=== PATIENT | female | born 1980 | race Caucasian/White ===

== ENCOUNTER 2021-06-21 19:25 | Emergency (ER) | payer OTHER, SELFPAY ==
[2021-06-21 19:52] VITALS: BP 167/84; PULSE 76; RESP 16; TEMP 36.6; O2SAT 100
--- NOTE | 2021-06-21 20:01 | ED.GENADULT ---
HPI - General Adult General Chief complaint: Unspecified Stated complaint: NEEDS MED REFILL Time Seen by Provider: 06/21/21 20:12 Source: patient and RN notes reviewed Mode of arrival: ambulatory Limitations: no limitations History of Present Illness HPI narrative: 41-year-old female presents with concern for medication refill. Reports her doctor and she has an appoint with her new doctor but not for several weeks. Reports she is doing without her Adderall since . She reports grogginess. She denies other symptoms. MD complaint: Medication refill Related Data Home Medications Medication Instructions Recorded Confirmed buprenorphine HCl mg SUBLINGUAL 06/21/21 buprenorphine-naloxone film 06/21/21 bupropion HCl mg PO 06/21/21 dextroamphetamine-amphetamine 06/21/21 fluoxetine mg 06/21/21 Allergies Allergy/AdvReac Type Severity Reaction Status Date / Time No Known Allergies Allergy Unknown Unverified 02/06/09 15:33 Review of Systems Review of Systems: CONSTITUTIONAL: Denies malaise, chills, sweats, or fever. CARDIOVASCULAR: Denies chest pain, palpitations, or edema. MUSCULOSKELETAL: Denies myalgia. NEUROLOGIC: Denies numbness, weakness, or headache. PSYCHIATRIC: Denies anxiety or depression. All systems reviewed & are unremarkable except as noted in HPI and below PMFSH Comments At time of signature, agree with nursing past medical, surgical, social and family history. There is no relevant family history pertinent to the presenting complaint Exam Narrative: GENERAL: Well-appearing, well-nourished, and in no acute distress. HEAD: Normocephalic, atraumatic. EYES: PERRLA, sclera clear, and EOMI. ENT: Mucous membranes moist. NECK: Supple. CHEST: No respiratory distress. Clear to auscultation. No bony deformities, no asymmetry. Speaks in full sentences. HEART: Regular rate and rhythm. SKIN: Warm, dry, no visible rash. NEURO: Alert and oriented x3. PSYCH: Normal mood and affect Course Course Emergency Course: Patient is aware of diagnosis, understands and agrees to treatment plan. Anticipatory guidance given. Patient agrees to follow-up as directed and is aware of reasons to seek care at the emergency department. Portions of this record may have been created with voice recognition software Vital Signs Vital signs: Vital Signs Temperature 97.9 F 06/21/21 19:52 Pulse Rate 76 06/21/21 19:52 Respiratory Rate 16 06/21/21 19:52 Blood Pressure 167/84 H 06/21/21 19:52 Pulse Oximetry 100 06/21/21 19:52 Temperature 97.9 F 06/21/21 19:52 Pulse Rate 76 06/21/21 19:52 Respiratory Rate 16 06/21/21 19:52 Blood Pressure 167/84 H 06/21/21 19:52 Pulse Oximetry 100 06/21/21 19:52 Reviewed. Medical Decision Making MDM Narrative Medical decision making narrative: Exam findings show no acute concerns or changes; patient is non-toxic appearing and is in no distress. Patient is appropriate for outpatient treatment and follow-up. Vital Signs Vital Signs: Vital Signs Temperature 97.9 F 06/21/21 19:52 Pulse Rate 76 06/21/21 19:52 Respiratory Rate 16 06/21/21 19:52 Blood Pressure 167/84 H 06/21/21 19:52 Pulse Oximetry 100 06/21/21 19:52 Temperature 97.9 F 06/21/21 19:52 Pulse Rate 76 06/21/21 19:52 Respiratory Rate 16 06/21/21 19:52 Blood Pressure 167/84 H 06/21/21 19:52 Pulse Oximetry 100 06/21/21 19:52 Critical Care Time Critical Care Time Critical Care Time: No Discharge Plan Discharge Clinical Impression: Medication refill Patient Disposition: Home, Self-Care Condition: Stable Instructions: General Patient Instructions Additional Instructions: 1) Please follow-up with your primary care doctor in the next 1-2 days. 2) If you have any worsening of symptoms or any other urgent concerns please go to the ER. 3) Please continue taking your home medications as usual. 4) Please read and follow information incl
== END 2021-06-21 20:25 | disposition home or self-care (01) ==
PROVIDERS: Emergency Provider Nurse Practitioner
DX: Z76.0 Encounter for issue of repeat prescription (principal)
CPT/HCPCS: 99202; G0463